=== PATIENT | male | born 1995 | race Caucasian/White ===

== ENCOUNTER 2019-06-26 11:13 | Emergency (ER) | payer MEDICAID ==
[~2019-06-26] VITALS: Ht 180.3 cm; Wt 70.0 kg
[~2019-06-26 11:13] MED LIST: ALBU2.5V11 NEB
[2019-06-26] MEDS ORDERED: ALBUTEROL/IPRATROPIUM 2.5MG/0.5MG, 3 ML NPPB SCH (11:30)
--- NOTE | 2019-06-26 11:33 | NUR ---
PT STATES HAVING INCREASE SOB, PT NEEDING TO USE RESCUE INHALER OVER THE PAST COUPLE DAYS. PT DENIES CP. PT HAS HX ASTHMA. PT COULD NOT GET INTO PCP UNTIL JULY SO HE DECIDED TO COME TO ER.
[2019-06-26] MEDS ORDERED: ALBUTEROL/IPRATROPIUM 2.5MG/0.5MG, 3 ML ONE (11:42)
--- NOTE | 2019-06-26 12:08 | NUR ---
PT MEDICATED PER AUG, RT ADMIN BREATHING TREATMENT, PT STATES HE FEELS MUCH BETTER.
[2019-06-26 12:28] VITALS: BP 99/61
== END 2019-06-26 12:46 | disposition home or self-care (01) ==
LOC: ED 12:20
DX: J45.31 Mild persistent asthma with (acute) exacerbation (principal)
CPT/HCPCS: 71046; 94640; 99283; J7512; J7620

== ENCOUNTER 2019-08-15 12:50 | Emergency (ER) | payer MEDICAID ==
[~2019-08-15] VITALS: Ht 180.3 cm; Wt 65.2 kg
[2019-08-15] MEDS ORDERED: methylPREDNISolone SOD SUCC 125 MG/2 ML ONE (13:14)
[2019-08-15] MEDS ORDERED: ALBUTEROL 0.5%, 20ML ONE (13:19)
--- NOTE | 2019-08-15 13:27 | NUR ---
IV est, medicated as per emar & IVF bolus hung. Continuous neb tx started by RT. Pt resting comfortably at this time, call light within reach, all needs addressed.
[2019-08-15] MEDS ORDERED: SODIUM CHLORIDE FLUSH 10ML SYR IVF ONE (13:30)
[2019-08-15] MEDS ORDERED: methylPREDNISolone SOD SUCC 125 MG/2 ML IV ONE (13:30)
[2019-08-15] MEDS ORDERED: SODIUM CHLORIDE 0.9% 1,000ML IVBOLUS ONE (13:30)
[2019-08-15] MEDS ORDERED: ALBUTEROL SULFATE 2.5 MG/3 ML NPPB ONE (13:30)
--- NOTE | 2019-08-15 14:03 | NUR ---
PT RESTING, VERBALIZED NO NEEDS AT THIS TIME
[2019-08-15 15:25] VITALS: BP 113/66
== END 2019-08-15 15:28 | disposition home or self-care (01) ==
LOC: ED 15:20
DX: J45.41 Moderate persistent asthma with (acute) exacerbation (principal); J45.909 Unspecified asthma, uncomplicated; F17.200 Nicotine dependence, unspecified, uncomplicated; R06.02 Shortness of breath
CPT/HCPCS: 71045; 94644; 96365; 99285; J2930; J7030; J7611; J7613

== ENCOUNTER 2020-10-30 13:05 | Emergency (ER) | payer MEDICAID ==
[~2020-10-30] VITALS: Ht 180.3 cm; Wt 64.8 kg
--- NOTE | 2020-10-30 13:30 | NUR ---
EKG done in triage.
--- NOTE | 2020-10-30 13:52 | NUR ---
DISPOSAL MAN: PT TO ROOM FROM LOBBY
[2020-10-30 14:09] LABS: BASOPHILS % (AUTO) 0 % (0-1); EOSINOPHILS % (AUTO) 3 % (1-7); LYMPHOCYTES % (AUTO) 20 % (22-44); MEAN CORPUSCULAR HEMOGLOBIN 29.7 pg (27.5-34.5); MEAN CORPUSCULAR HGB CONC 32.9 g/dL (33.2-36.2); MEAN PLATELET VOLUME 8.5 fL (7.4-10.4); MONOCYTES % (AUTO) 9 % (2-9); NEUTROPHILS % (AUTO) 68 % (42-75); PLATELET COUNT 282 x10^3/uL (130-400); RED BLOOD COUNT 4.69 x10^6/uL (4.38-5.82); RED CELL DISTRIBUTION WIDTH 13.1 % (9.4-14.8)
--- NOTE | 2020-10-30 14:09 | NUR ---
CC OF DIZZYNESS AND NAUSEA SINCE 8 PM LAST NIGHT. PT STATES HE WOKE UP FROM A NAP WITH THE SENSATION OF DIZZYNESS AND NAUSEA AND ATTEMPTED TO GET OUT OF BED BUT HAD GLF. PT DENIES LOC OR HITTING HIS HEAD. PT STATES HE WAS SO DIZZY HE COULDN'T LAY IN BED AND TRIED SLEEPING ON THE FLOOR. PT DENIES ANY DRUG USE, DRINKING, OR TAKING ANY NEW MEDICATIONS. PT STATES HE IS DIZZY SITTING IN GURNEY IN AN UPRIGHT POSITION.
[2020-10-30 14:12] LABS: ANION GAP 4 mmol/L (5-15); CHLORIDE 107 mmol/L (98-107)
[2020-10-30 14:13] LABS: CREATININE 0.93 mg/dL (0.7-1.3)
[2020-10-30] MEDS ORDERED: MECLIZINE CHEWABLE 25 MG TAB PO ONE (15:00)
[2020-10-30] MEDS ORDERED: ONDANSETRON ODT 4 MG PO ONE (15:00)
[2020-10-30] MEDS ORDERED: ONDANSETRON ODT 4 MG ONE (15:03)
[2020-10-30] MEDS ORDERED: MECLIZINE CHEWABLE 25 MG TAB ONE (15:03)
--- NOTE | 2020-10-30 15:04 | NUR ---
PT TO CT
--- NOTE | 2020-10-30 15:46 | NUR ---
PT REPORTS "THE SENSATION IN MY STOMACH IS GONE NOW AND I CAN MOVE MY HEAD UP AND DOWN WITHOUT FEELING DIZZY BEFORE BUT ITS STILL A LITTLE BIT THERE WHEN I TURN MY HEAD LEFT AND RIGHT".
[2020-10-30 17:00] VITALS: BP 115/80
== END 2020-10-30 17:05 | disposition home or self-care (01) ==
LOC: ED 16:55
DX: R42 Dizziness and giddiness (principal); R11.2 Nausea with vomiting, unspecified
CPT/HCPCS: 36415; 70450; 80048; 82040; 85025; 93005; 99285; Q0162